=== PATIENT | male | born 1995 | race American Indian/Alaskan Native ===

== ENCOUNTER 2018-07-18 13:07 | Emergency (ER) | payer SELFPAY ==
[2018-07-18 13:15] VITALS: BP 110/57
--- NOTE | 2018-07-18 20:15 | Emergency Department Report ---
Chief Complaint: Urogenital-Male Stated Complaint: STD CHECK Time Seen by Provider: 07/18/18 19:30 - HPI History of Present Illness: This is a 22-year-old male here report that he is having penile itching 2-3 weeks. He reports that he was having an penile discharge and painful urination but that stopped but now he is having itching. Pain is 0-10. Denies a fever or chills. Denies any burning with urination. Denies any back or abdominal pain. Denies any nausea or vomiting. No medical history. His partner is here to have STD testing without any symptoms. - ROS Review of Systems: Positive penile itching in with history of penile discharge and burning that has resolved. Still penile itching. Negative abdominal pain, negative nausea vomiting negative back pain. Negative fever or chills. Negative hematuria negative arthralgia - Exam Vital Signs: Vital Signs 07/18/18 13:13 Temperature 98.3 F Pulse Rate 77 Respiratory 18 Rate Blood Pressure 110/57 O2 Sat by Pulse 98 Oximetry Physical Exam: This is a 22-year-old male in no short developing no acute distress. Abdomen: Nontender to palpate in all quadrants, no guarding or rebound tenderness. No CVA tenderness CV: S1, S2. Regular rate rhythm negative murmur MSE screening note: Focused history and physical exam performed. Due to findings the following was ordered: ED Medical Decision Making - Medical Decision Making Seen here reports that he said he was having some penile burning and discharge but that a stop but he has been having itching for 2-3 weeks and he is here to get tested and treated for STD without knowing if he has SBP. I discussed the patient that based on my physical findings that this is not an emergent problem and since he is not having any burning with urination or any discharge present he can follow-up at the health Department. I discussed with him that I will give him multiple resources to get STD check and get treated. He agreed to resources. Patient is stable. Vital signs stable afebrile and nontoxic in appearance. Discharged from ED in stable condition ED Disposition for MSE Clinical Impression: Concern about STD in male without diagnosis, Itching of male genitalia Disposition: - TO HOME OR SELFCARE Is pt being admited?: No Does the pt Need Aspirin: No Condition: Stable Instructions: Sexually Transmitted Diseases (ED), Safe Sex (ED) Additional Instructions: Please follow up with clinic at health department and/or other resources given to you for STD testing and possible treatment. Practice safe sex Referrals: [facility] Dept[facility] [Outside] - 2-3 Days [facility] [Outside] - 2-3 Days [facility] [Outside] - 2-3 Days
== END 2018-07-18 20:20 | disposition home or self-care (01) ==
LOC: ED 13:07
DX: Z20.2 Contact with and (suspected) exposure to infections with a predominantly sexual mode of transmission (principal)
CPT/HCPCS: 99281